=== PATIENT | female | born 1995 ===

== ENCOUNTER 2016-08-17 23:52 | Emergency (ER) | payer OTHER ==
[2016-08-18 00:33] LABS: URINE BILIRUBIN NEGATIVE (NEGATIVE); URINE BLOOD NEGATIVE (NEGATIVE); URINE GLUCOSE (UA) NEGATIVE (NEGATIVE); URINE LEUKOCYTE ESTERASE TRACE (NEGATIVE); URINE NITRITE NEGATIVE (NEGATIVE); URINE PROTEIN NEGATIVE (NEGATIVE); URINE UROBILINOGEN NORMAL (0-1 mg/dl)
[2016-08-18 00:34] LABS: URINE APPEARANCE CLEAR; URINE COLOR YELLOW
[2016-08-18 00:35] LABS: HCG,QUALITATIVE URINE NEGATIVE
[2016-08-18 00:41] LABS: URINE BACTERIA 0; URINE RBC 0-1 /hpf
[2016-08-18] MEDS ORDERED: KETOROLAC TROMETHAMINE 30 MG/ML 1 ML VIAL ONE (00:42)
[2016-08-18] MEDS ORDERED: LACTATED RINGERS 1,000 ML ONE (00:42)
[2016-08-18 01:09] LABS: ABSOLUTE NEUTROPHIL COUNT 11.2 K/mm3 (1.8-7.7); BASO # 0.1 K/mm3 (0.0-0.2); BASO % 0.5 % (0.2-1.0); EOS # 0.2 (0.0-0.5); EOS % 1.2 % (0.9-2.9); HEMOGLOBIN 12.7 gm/l (12.0-16.0); IMM NEUT% 0.2 % (0-1); LYMPH # 1.2 (1.0-4.8); LYMPH % 8.6 % (15-45); MEAN CELL VOLUME 84.2 fl (81.0-99.0); MEAN CORPUSCULAR HEMOGLOBIN 27.4 pg (27.0-31.0); MEAN CORPUSCULAR HGB CONC 32.6 g/dl (33.0-37.0); MEAN PLATELET VOLUME 10.8 fl (7.4-10.4); MONO # 0.9 (0.0-0.8); MONO % 6.3 % (4-12); NEUT % 83.2 % (43-75); PLATELET COUNT 245 K/mm3 (130-400); RED CELL DISTRIBUTION WIDTH 12.8 % (11.5-14.5)
[2016-08-18 01:22] LABS: ALB/GLOB RATIO 1.5 (>1.0); ALBUMIN 4.4 gm/dL (3.5-5.7); CALCIUM 9.1 mg/dL (8.6-10.3)
--- NOTE | 2016-08-18 08:16 | US ---
PELVIC ULTRASOUND HISTORY: Left lower quadrant pain x3 days. Transabdominal and transvaginal pelvic sonography performed. TRANSABDOMINAL IMAGING UTERINE DIMENSIONS: 6.0 x 5.6 x 3.7 cm. BLADDER: No abnormal filling defect. TRANSVAGINAL IMAGING: ENDOMETRIAL THICKNESS: 6.8 mm. FOCAL UTERINE LESIONS: None. RIGHT OVARY: 3.1 x 3.6 x 2.7 cm for a volume of 15.7 cc. LEFT OVARY: 2.7 x 2.9 x 1.3 cm for volume of 5.3 cc. OVARIAN BLOOD FLOW: Documented bilaterally. DOMINANT ADNEXAL LESIONS: Simple 2.0 x 2.0 x 1.5 cm cyst of the right ovary. Additional left adnexal cystic lesion at the posterior cul-de-sac measuring 6.7 x 6.3 x 4.1 cm, without septations, nodularity, or hypervascularity. FREE FLUID: Minor free fluid at the left adnexal region. IMPRESSION: 6.7 cm probable left paraovarian simple cyst. At minimum, annual follow-up is recommended. Preserved ovarian blood flow. Nondominant 2 cm right ovarian cyst. Minor free fluid. Preliminary report relayed to the Emergency Medicine medical service by Dr. Laguna on 08/18/2016 at 0315 hours.
== END 2016-08-18 04:25 | disposition home or self-care (01) ==
LOC: ED 23:52
DX: N83.202 Unspecified ovarian cyst, left side (principal)
CPT/HCPCS: 83690; 81025; 85025; 80053; 81001; 76856; 76830; 99284; 96374; 96361; 99283; J1885; J7120